=== PATIENT | male | born 1955 | race Caucasian/White ===

== ENCOUNTER 2017-06-07 20:30 | Emergency (ER) | payer OTHER ==
[2017-06-07 21:53] VITALS: BP 154/78
--- NOTE | 2017-06-07 22:46 | EDM.PDOC ---
ED HPI GENERAL MEDICAL PROBLEM - General Chief Complaint: Head Injury Stated Complaint: HIT HEAD Time Seen by Provider: 06/07/17 22:40 Source of Information: Reports: Patient, Family History Limitations: Reports: No Limitations - History of Present Illness INITIAL COMMENTS - FREE TEXT/NARRATIVE: Abebe is an otherwise healthy 62 year old male who presents to the ED today after sustaining a head injury. Patient reports that his insisted that he come in for evaluation. Patient reports that at 1999 this evening he was walking around the cabin and completely didn't realize a window was open and he struck the top of his head. Patient's reports that he it his head so hard he "shook the cabin". Patient denies any loss of consciousness, he reports "I didn't see starts or anything like that". Patient since striking his head has been acting normally per his . He denies any nausea/vomiting/visual changes /headaches or other complaints. Patient denies any other injuries. Onset: Today Onset Time: 20:00 - Related Data Allergies Allergy/AdvReac Type Severity Reaction Status Date / Time No Known Allergies Allergy Verified 06/07/17 22:20 Home Meds: Home Meds Omeprazole 20 mg PO DAILY 06/07/17 [History] buPROPion HCl [Wellbutrin Xl] 150 mg PO DAILY 06/07/17 [History] clonazePAM [Clonazepam] 5 mg PO Q4H PRN 06/07/17 [History] Past Medical History Cardiovascular History: Reports: High Cholesterol, Hypertension Psychiatric History: Reports: Anxiety, Panic Attack Hematologic History: Reports: Blood Transfusion(s) - Infectious Disease History Infectious Disease History: Reports: Chicken Pox, Measles, Mumps - Past Surgical History HEENT Surgical History: Reports: Cataract Surgery GI Surgical History: Reports: Colonoscopy Dermatological Surgical History: Reports: Skin Biopsy Social & Family History - Tobacco Use Smoking Status *Q: Never Smoker Second Hand Smoke Exposure: No - Caffeine Use Caffeine Use: Reports: Coffee - Recreational Drug Use Recreational Drug Use: No ED ROS GENERAL - Review of Systems Review Of Systems: ROS reveals no pertinent complaints other than HPI. ED EXAM, HEAD INJURY - Physical Exam Exam: See Below Exam Limited By: No Limitations General Appearance: Alert, WD/WN, No Apparent Distress Head: Normocephalic, Scalp Tenderness (Mild), Other (small 3 mm abrasion to top left parietal scalp). No: Scalp Lacerations, Scalp Swelling Nexus Criteria: No: Posterior, Midline Cervical Tenderness, Altered Level of Consciousness, Focal Neurological Deficit Eyes: Bilateral Eye: EOMI, PERRL Ears: Normal External Exam, Normal Canal, Hearing Grossly Normal, Normal TMs Nose: Normal Inspection Throat/Mouth: Normal Oropharynx Neck: Non-Tender, Full Range of Motion, Normal Alignment, Normal Inspection. No : Paraspinous Muscle Tender, Spinous Processes Tender, Tender Midline Respiratory: No Respiratory Distress, Lungs Clear Cardiovascular: Normal Peripheral Pulses, Regular Rate, Rhythm, No Murmur Back Exam: Normal Inspection, Full Range of Motion Extremities: Normal Inspection, Normal Range of Motion, Non-Tender, Normal Capillary Refill Neurologic: copy clerk II-XII nml As Tested, No Motor/Sensory Deficits, Alert, Normal Mood/Affect, Oriented x 3 Skin: Normal Color, Warm/Dry - Adam Coma Score Best Eye Response (Ruth): (4) Open Spontaneously Best Verbal Response (Ruth): (5) Oriented Best Motor Response (Adam): (6) Obeys Commands Course - Vital Signs Last Recorded V/S: Last Vital Signs Temp 36.3 C 06/07/17 22:32 Pulse 63 06/07/17 22:32 Resp 16 06/07/17 22:32 BP 154/78 H 06/07/17 22:32 Pulse Ox 97 06/07/17 22:32 Abebe is a very pleasant 62 year old male who presents to the ED today post head injury. Please refer to HPI and focused exam. Patient himself denies any complaints or concerns, states his insisted he be seen. Patient's exam is very reassuring. He does not exhibit any neuro/focal deficits and denies any symptoms that would be concerning or indicative of a concussion. I discussed at length with patient and his head injuries, concussions and exam findings /history that would indicate the need for a CT scan. Patient at this time has no indications for imaging. I feel patient at this time is stable to be discharged home. Reasons to return to the ED were discussed in detail. Patient and his are agreeable to plan of care and questions were answered prior to discharge. Patient was discharged in stable condition. Departure - Departure Time of Disposition: 23:00 Disposition: Home, Self-Care 01 Condition: Good Clinical Impression: Head injury, acute, without loss of consciousness Qualifiers: Encounter type: initial encounter Qualified Code(s): S09.90XA - Unspecified injury of head, initial encounter - Discharge Information Instructions: Head Injury, Adult, [id number] Referrals: PCP,None [Primary Care Provider] - Forms: ED Department Discharge Additional Instructions: Abebe, Your exam is very re-assuring today. I have given you head injury instructions. If you develop a severe headache, visual changes, repetitive vomiting, or other concerning symptoms, please return to the Emergency Room. Take care and enjoy the rest of your vacation!
== END 2017-06-07 22:53 | disposition home or self-care (01) ==
LOC: JP.ED 20:30
DX: S00.01XA Abrasion of scalp, initial encounter (principal); I10 Essential (primary) hypertension; E78.00 Pure hypercholesterolemia, unspecified; Z98.49 Cataract extraction status, unspecified eye; Z79.899 Other long term (current) drug therapy; W22.8XXA Striking against or struck by other objects, initial encounter
CPT/HCPCS: 99283

== ENCOUNTER 2021-02-11 22:25 | Emergency (ER) | payer OTHER ==
[2021-02-11 22:46] VITALS: BP 169/96; PULSE 78
[2021-02-11] MEDS ORDERED: Sodium Chloride 0.9% 10 ML Syringe FLUSH PRN (23:41)
--- NOTE | 2021-02-11 23:42 | EDM.PDOC ---
ED HPI GENERAL MEDICAL PROBLEM - General Chief Complaint: Cardiovascular Problem Stated Complaint: FEELS LIKE HEART IS FLUTTERING Time Seen by Provider: 02/11/21 23:40 Source of Information: Reports: Patient History Limitations: Reports: No Limitations - History of Present Illness INITIAL COMMENTS - FREE TEXT/NARRATIVE: [facility] today secondary to episode of palpitations heart fluttering that occurred tonight when he laid down he states that it feels like starting like a light racing than fluttering sensation it gets gradually worse and what he says feels like a violent heart rate he says that he has episodes that have been going on for greater than 1-1/2 years he has been seen in the past by his primary care provider in [place] he did have an EKG as well as a chest CT done in regards to that but states that nothing was found he has recently relocated here and has a new primary care provider he did see that position for a physical and mentioned it in passing but states that he has not been seen specifically for this issue he states that it occurs very infrequently he denies any other associated symptoms such as chest pain discomfort shortness of breath difficulty breathing lightheaded or dizziness. Those are short in duration and he is currently not having any symptoms here in the emergency room PMH/Meds--denies NKDA Tob--former EtOH--rare Drugs--denies - Related Data Allergies Allergy/AdvReac Type Severity Reaction Status Date / Time No Known Allergies Allergy Verified 06/07/17 22:20 Home Meds: Home Meds NK [No Known Home Meds] 02/11/21 [History] Past Medical History Cardiovascular History: Reports: High Cholesterol, Hypertension Psychiatric History: Reports: Anxiety, Panic Attack Hematologic History: Reports: Blood Transfusion(s) - Infectious Disease History Infectious Disease History: Reports: Chicken Pox, Measles, Mumps - Past Surgical History HEENT Surgical History: Reports: Cataract Surgery GI Surgical History: Reports: Colonoscopy Dermatological Surgical History: Reports: Skin Biopsy Social & Family History - Tobacco Use Tobacco Use Status *Q: Never Tobacco User - Caffeine Use Caffeine Use: Reports: Coffee - Recreational Drug Use Recreational Drug Use: No ED ROS GENERAL - Review of Systems Review Of Systems: See Below Constitutional: Reports: No Symptoms HEENT: Reports: No Symptoms Respiratory: Reports: No Symptoms. Denies: Shortness of Breath, Wheezing, Pleuritic Chest Pain Cardiovascular: Reports: Palpitations. Denies: Chest Pain, Dyspnea on Exertion, Edema, Lightheadedness, Syncope Endocrine: Reports: No Symptoms GI/Abdominal: Reports: No Symptoms : Reports: No Symptoms Musculoskeletal: Reports: No Symptoms Skin: Reports: No Symptoms Neurological: Reports: No Symptoms. Denies: Dizziness, Weakness Psychiatric: Reports: No Symptoms Hematologic/Lymphatic: Reports: No Symptoms Immunologic: Reports: No Symptoms ED EXAM, GENERAL - Physical Exam Exam: See Below Exam Limited By: No Limitations General Appearance: Alert, WD/WN, No Apparent Distress Eye Exam: Bilateral Eye: EOMI, Normal Inspection, PERRL Ears: Normal External Exam Nose: Normal Inspection Throat/Mouth: Normal Inspection, Normal Lips, Normal Oropharynx Head: Atraumatic, Normocephalic Neck: Normal Inspection, Supple, Non-Tender, Full Range of Motion. No: Carotid Bruit, Thyromegaly Respiratory/Chest: No Respiratory Distress, Lungs Clear, Normal Breath Sounds Cardiovascular: Normal Peripheral Pulses, Regular Rate, Rhythm, No Edema, No Murmur Peripheral Pulses: 2+: Radial (L), Radial (R) GI/Abdominal: Normal Bowel Sounds, Soft, Non-Tender, No Distention (Male) Exam: Deferred Rectal (Males) Exam: Deferred Back Exam: Normal Inspection Extremities: Normal Inspection, Normal Range of Motion, No Pedal Edema, Normal Capillary Refill Neurological: Alert, Oriented, CN II-XII Intact, Normal Cognition, No Mot or/Sensory Deficits Psychiatric: Normal Affect, Normal Mood Skin Exam: Warm, Dry, Intact, Normal Color #1 Interpretation EKG Date: 02/12/21 Time: 00:14 (read at 0018) Rhythm: NSR Rate (Beats/Min): 68 Dawson: Normal P-Wave: Present (MD-169) QRS: Normal (QRS-92) ST-T: Normal QT: Normal (QT/QTc-395/421) Course - Vital Signs Text/Narrative:: [id number]--mi EKG have been reviewed no acute findings TSH was 2.46 and troponin was negative at less than 0.017 discussed with patient and at bedside today's ER findings and recommendations for further care follow-up with primary care provider to discuss monitoring such as a Holter or an event monitor for the s ymptoms that have been ongoing for the last year and a half or so patient and spouse verbalized understanding agreement with plan of care ready for discharge Last Recorded V/S: Last Vital Signs Temp 97.3 F 02/11/21 22:46 Pulse 78 02/11/21 22:46 Resp 12 02/11/21 22:46 BP 169/96 H 02/11/21 22:46 Pulse Ox 99 02/11/21 22:46 - Orders/Labs/Meds Orders: Active Orders 24 hr Category Date Time Status Cardiac Monitoring [RC] .As Directed Care 02/11/21 23:41 Active EKG Documentation Completion [RC] ASDIRECTED Care 02/11/21 23:42 Active Pulse Oximetry [RC] CONTINUOUS Care 02/11/21 23:41 Active EKG 12 Lead [EK] Stat Ther 02/11/21 23:41 Ordered Labs: Laboratory Tests 02/11/21 02/11/21 02/11/21 Range/Units 23:50 23:50 23:53 WBC 5.9 (4.5-11.0) K/uL RBC 4.90 (4.30-5.90) M/uL Hgb 15.1 H (12.0-15.0) g/dL Hct 43.8 (40.0-54.0) % MCV 89 (80-98) fL MCH 31 (27-31) pg MCHC 35 (32-36) % Plt Count 229 (150-400) K/uL Neut % (Auto) 45 (36-66) % Lymph % (Auto) 35 (24-44) % [place] % (Auto) 15 H (2-6) % Eos % (Auto) 5 H (2-4) % Baso % (Auto) 1 (0-1) % Sodium 144 (140-148) mmol/L Potassium 3.9 (3.6-5.2) mmol/L Chloride 105 (100-108) mmol/L Carbon Dioxide 28 (21-32) mmol/L Anion Gap 10.7 (5.0-14.0) mmol/L BUN 14 (7-18) mg/dL Creatinine 1.1 (0.8-1.3) mg/dL Est Cr Clr Drug Dosing 60.94 mL/min Estimated GFR (MDRD) > 60 (>60) Glucose 99 (74-106) mg/dL Calcium 9.0 (8.5-10.1) mg/dL Magnesium 2.0 (1.8-2.4) mg/dL Total Bilirubin 0.5 (0.2-1.0) mg/dL AST 23 (15-37) U/L ALT 37 (12-78) U/L Alkaline Phosphatase 63 (46-116) U/L Troponin I < 0.017 (0.000-0.056) ng/mL Total Protein 6.8 (6.4-8.2) g/dL Albumin 3.7 (3.4-5.0) g/dL Globulin 3.1 (2.3-3.5) g/dL Albumin/Globulin Ratio 1.2 (1.2-2.2) TSH, Ultra Sensitive 2.461 (0.358-3.740) uIU/mL Meds: Medications Discontinued Medications Generic Name Dose Route Start Last Admin Trade Name Freq PRN Reason Stop Dose Admin Sodium Chloride 10 ml 02/11/21 23:41 Sodium Chloride 0.9% 10 Ml Syringe FLUSH ASDIRECTED PRN Keep Vein Open Departure - Departure Time of Disposition: 01:05 Disposition: Home, Self-Care 01 Condition: Good Clinical Impression: Palpitations, Elevated blood pressure reading Instructions: Palpitations, Preventing Hypertension, Hypertension, Adult Referrals: Gretel Quintanilla DO [Primary Care Provider] - Forms: ED Department Discharge Additional Instructions: Recommend that you follow-up with your primary care provider as you had noted elevated blood pressure pancho in the emergency room and this needs to be further evaluated Labs have returned essentially normal TSH was 2.46 which is normal thus unlikely to be a cause of your palpitations Follow-up with your primary care provider family doctor in regards to pancho's ER visit for further evaluation and management Sepsis Event Note (ED) - Evaluation Sepsis Screening Result: No Definite Risk - Focused Exam Vital Signs: Vital Signs Temp Pulse Resp BP Pulse Ox 02/11/21 22:46 97.3 F 78 12 169/96 H 99 - My Orders Last 24 Hours: My Active Orders 02/11/21 23:41 Cardiac Monitoring [RC] .As Directed Pulse Oximetry [RC] CONTINUOUS EKG 12 Lead [EK] Stat 02/11/21 23:42 EKG Documentation Completion [RC] ASDIRECTED - Assessment/Plan Last 24 Hours: My Active Orders 02/11/21 23:41 Cardiac Monitoring [RC] .As Directed Pulse Oximetry [RC] CONTINUOUS EKG 12 Lead [EK] Stat 02/11/21 23:42 EKG Documentation Completion [RC] ASDIRECTED
== END 2021-02-12 01:29 | disposition home or self-care (01) ==
LOC: JP.ED 22:25
DX: R00.2 Palpitations (principal); I10 Essential (primary) hypertension; Z87.891 Personal history of nicotine dependence
CPT/HCPCS: 36415; 80053; 83735; 84443; 84484; 85025; 93005; 99285-25

== ENCOUNTER 2024-06-04 22:45 | Emergency (ER) | payer MEDICARE ==
[2024-06-04 23:02] VITALS: BP 179/80; PULSE 70
== END 2024-06-05 00:25 | disposition home or self-care (01) ==
LOC: JP.ED 22:45
DX: R60.0 Localized edema (principal); I10 Essential (primary) hypertension; Z79.899 Other long term (current) drug therapy
CPT/HCPCS: 36415; 85379; 99283

== ENCOUNTER 2025-08-20 09:54 | Day surgery (SDC) | payer MEDICARE ==
[2025-08-20 10:23] LABS: PLATELET COUNT,PLT 229.0 K/uL (130-375); RED BLOOD CELL COUNT 4.95 M/uL (4.14-5.76); WHITE BLOOD CELL COUNT,WBC 7.0 K/uL (3.2-11.0)
[2025-08-20] MEDS ORDERED: fentaNYL 100 MCG/2 ML SDV ONE (10:29)
[2025-08-20] MEDS ORDERED: Propofol 200 MG/20 ML SDV ONE ×2 (10:29→15:30)
[2025-08-20] MEDS ORDERED: Midazolam 1 MG/ML 2 ML SDV ONE (10:29)
[2025-08-20 10:42] LABS: BLOOD UREA NITROGEN,BUN 10.0 mg/dL (7-18); CARBON DIOXIDE,CO2 29.0 mmol/L (21-32); CHLORIDE,CL 102.0 mmol/L (100-108); CREATININE 0.9 mg/dL (0.8-1.3); EST CRCL DRUG DOSING (CG) 69.58 mL/min; ESTIMATED GFR 92.0 mL/min (>60); GLUCOSE RANDOM 93.0 mg/dL (74-106); POTASSIUM,K 4.0 mmol/L (3.6-5.2); SODIUM,NA 138.0 mmol/L (140-148)
[2025-08-20] MEDS: Nozin Nasal Sanitizer NASBOTH SCH ×2 (10:55→21:41)
[2025-08-20] MEDS: Lactated Ringers 1,000 ML IV SCH (11:08)
[2025-08-20] MEDS ORDERED: Ondansetron 4 MG/2 ML SDV IVPUSH PRN (11:40)
[2025-08-20] MEDS: SODIUM CHLORIDE 0.9% IV ONE (14:30)
[2025-08-20] MEDS: TRANEXAMIC ACID IV ONE (14:30)
[2025-08-20] MEDS ORDERED: ePHEDrine 50 MG/ML SDV ONE (14:59)
[2025-08-20] MEDS: Ketorolac 15 MG/ML SDV IVPUSH PRN (17:45)
[2025-08-21 06:00] LABS: PLATELET COUNT,PLT 171.0 K/uL (130-375); RED BLOOD CELL COUNT 3.67 M/uL (4.14-5.76); WHITE BLOOD CELL COUNT,WBC 7.1 K/uL (3.2-11.0)
[2025-08-21] MEDS: Fish Oil/Omega-3 Fatty Acids 1 Gm Cap PO SCH (08:26)
[2025-08-21] MEDS: Calcium Carbonate/Vitamin D3 1500 MG-400 Units Tab PO SCH (08:26)
[2025-08-21] MEDS: Lactobacillus Rhamnosus GG (Probiotic) Cap PO SCH (08:26)
[2025-08-21] MEDS: Aspirin 325 MG Tab.EC PO SCH (08:27)
[2025-08-21] MEDS ORDERED: PYG PO SCH (09:00)
[2025-08-21] MEDS ORDERED: BETA PO SCH (09:00)
[2025-08-21] MEDS ORDERED: LYC PO SCH (09:00)
[2025-08-21] MEDS ORDERED: SAW PO SCH (09:00)
[2025-08-21] MEDS ORDERED: SOD SEL PO SCH (09:00)
[2025-08-21] MEDS ORDERED: [UNRECOGNIZED DRUG - OTHER] PO SCH (09:00)
[2025-08-21] MEDS ORDERED: VIT E PO SCH (09:00)
[2025-08-21 12:26] VITALS: BP 138/56; PULSE 70
== END 2025-08-21 13:56 | disposition home or self-care (01) ==
LOC: JP.SDS 09:54 → JP.ICU 11:40 → JP.SDS 08-21 13:56
PROVIDERS: ATTEND Specialist
DX: M16.11 Unilateral primary osteoarthritis, right hip (principal)
CPT/HCPCS: 01214; 36415; 72170; 80048; 85027; 93005; 93010; 97110; 97161; 97165; A9270; C1713; C1776; J0690; J2250; J2704; J3010; J7030; J7120; J1885